=== PATIENT | male | born 1965 | race Caucasian/White ===

== ENCOUNTER 2021-01-07 08:44 | Outpatient (CLI) | payer OTHER | END 2021-01-07 08:45 | disposition home or self-care (01) | LOC: CSHWCC 08:44 | PROVIDERS: ATTEND Nurse Practitioner Family | DX: S81.002D Unspecified open wound, left knee, subsequent encounter (principal); E11.628 Type 2 diabetes mellitus with other skin complications; G89.11 Acute pain due to trauma; I70.202 Unspecified atherosclerosis of native arteries of extremities, left leg; Z72.0 Tobacco use | CPT/HCPCS: 11042; 97605; 99203; G0463 ==

== ENCOUNTER 2021-01-10 10:15 | Outpatient (CLI) | payer OTHER | END 2021-01-10 10:16 | disposition home or self-care (01) | LOC: CSHWCC 10:15 | PROVIDERS: ATTEND Nurse Practitioner Family | DX: S81.002D Unspecified open wound, left knee, subsequent encounter (principal); E11.628 Type 2 diabetes mellitus with other skin complications; G89.11 Acute pain due to trauma; I70.202 Unspecified atherosclerosis of native arteries of extremities, left leg; Z72.0 Tobacco use | CPT/HCPCS: 87070; 87077; 87186; 87205; 99213; G0463 ==

== ENCOUNTER 2021-01-13 15:08 | Outpatient (CLI) | payer OTHER | END 2021-01-13 15:09 | disposition home or self-care (01) | LOC: CSHRAD 15:08 → CSHSDC/OP 15:08 | PROVIDERS: ATTEND Nurse Practitioner Family | DX: S81.002A Unspecified open wound, left knee, initial encounter (principal); M17.12 Unilateral primary osteoarthritis, left knee ==

== ENCOUNTER 2021-01-17 11:19 | Outpatient (CLI) | payer OTHER | END 2021-01-17 11:20 | disposition home or self-care (01) | LOC: CSHWCC 11:19 | PROVIDERS: ATTEND Nurse Practitioner Family | DX: S81.002A Unspecified open wound, left knee, initial encounter (principal); E11.628 Type 2 diabetes mellitus with other skin complications; G89.11 Acute pain due to trauma; I70.202 Unspecified atherosclerosis of native arteries of extremities, left leg; Z72.0 Tobacco use | CPT/HCPCS: 11042; 97605 ==

== ENCOUNTER 2021-01-22 11:39 | Outpatient (CLI) | payer OTHER | END 2021-01-22 11:40 | disposition home or self-care (01) | LOC: CSHWCC 11:39 | PROVIDERS: ATTEND Nurse Practitioner Family | DX: S81.002D Unspecified open wound, left knee, subsequent encounter (principal); E11.628 Type 2 diabetes mellitus with other skin complications; L98.492 Non-pressure chronic ulcer of skin of other sites with fat layer exposed; K94.09 Other complications of colostomy; G89.11 Acute pain due to trauma; I70.202 Unspecified atherosclerosis of native arteries of extremities, left leg; E78.01 Familial hypercholesterolemia; F32.9 Major depressive disorder, single episode, unspecified; I10 Essential (primary) hypertension; L88 Pyoderma gangrenosum; Z72.0 Tobacco use; Z85.46 Personal history of malignant neoplasm of prostate | CPT/HCPCS: 97605 ==

== ENCOUNTER 2021-01-25 09:12 | Outpatient (CLI) | payer OTHER | END 2021-01-25 09:13 | disposition home or self-care (01) | LOC: CSHWCC 09:12 | PROVIDERS: ATTEND Nurse Practitioner Family | DX: S81.002D Unspecified open wound, left knee, subsequent encounter (principal); E11.628 Type 2 diabetes mellitus with other skin complications; G89.11 Acute pain due to trauma; I70.202 Unspecified atherosclerosis of native arteries of extremities, left leg; Z72.0 Tobacco use | CPT/HCPCS: 97605 ==

== ENCOUNTER 2021-01-29 11:28 | Outpatient (CLI) | payer OTHER | END 2021-01-29 11:29 | disposition home or self-care (01) | LOC: CSHWCC 11:28 | PROVIDERS: ATTEND Nurse Practitioner Family | DX: S81.002D Unspecified open wound, left knee, subsequent encounter (principal); E11.628 Type 2 diabetes mellitus with other skin complications; G89.11 Acute pain due to trauma; I70.202 Unspecified atherosclerosis of native arteries of extremities, left leg; Z72.0 Tobacco use | CPT/HCPCS: 99213; G0463 ==

== ENCOUNTER 2021-02-05 14:19 | Outpatient (CLI) | payer OTHER | END 2021-02-05 14:20 | disposition home or self-care (01) | LOC: CSHWCC 14:19 | PROVIDERS: ATTEND Nurse Practitioner Family | DX: S81.002D Unspecified open wound, left knee, subsequent encounter (principal); E11.51 Type 2 diabetes mellitus with diabetic peripheral angiopathy without gangrene; I70.202 Unspecified atherosclerosis of native arteries of extremities, left leg; E11.628 Type 2 diabetes mellitus with other skin complications; G89.11 Acute pain due to trauma; Z72.0 Tobacco use ==

== ENCOUNTER 2021-06-22 13:50 | Emergency (ER) | payer OTHER ==
[2021-06-22 14:29] LABS: #Basophils 0.1 10x3/uL (0.0-0.2); #Eosinphils 0.2 10x3/uL (0.0-0.5); #Monocytes 0.5 10x3/uL (0.0-1.1); #Neutrophils 4.4 10x3/uL (1.5-8.4); %Basophils 0.7 % (0.0-2.0); %Eosinophils 2.1 % (0.0-6.0); %Lymphocytes 32.8 % (18.0-47.0); %Monocytes 6.3 % (0.0-10.0); %Neutrophils 57.4 % (40.0-75.0); Hemoglobin 11.7 g/dL (13.5-17.5); Mean Corpuscular Hemoglobin 26.2 pg (27.0-33.0); Mean Corpuscular Volume 82.1 fl (81.2-95.1); Mean Platelet Volume 10.4 fl (7.4-10.4); Platelet Count 210 10x3/uL (150-450); RBC Distribution Width 15.5 % (11.5-14.5); Red Blood Cell (RBC) Count 4.46 10x6/uL (4.32-5.72); White Blood Cell (WBC) Count 7.6 10x3/uL (3.5-10.5)
[2021-06-22 14:39] LABS: ALT (SGPT) 42 U/L (8-55); AST (SGOT) 25 U/L (5-34); Albumin 3.6 g/dL (3.5-5.0); Alkaline Phosphatase 132 U/L (40-110); Anion Gap 15 mmol/L (10-20); BUN (Urea Nitrogen) 57 mg/dL (8.4-25.7); Bilirubin, Total 0.3 mg/dL (0.2-1.2); Calc. Creatinine Clearance 0 mL/min (70-130); Calcium 9.6 mg/dL (7.8-10.44); Carbon Dioxide 22 mmol/L (22-29); Chloride 104 mmol/L (98-107); Globulin 3.3 g/dL (2.4-3.5); Glucose 263 mg/dL (70-105); Potassium 4.7 mmol/L (3.5-5.1); Protein, Total 6.9 g/dL (6.0-8.3); Sodium 136 mmol/L (136-145)
[2021-06-22 15:02] LABS: CKMB 2.4 ng/mL (0-6.6)
== END 2021-06-22 16:42 | disposition home or self-care (01) ==
LOC: CSHERS 13:50
DX: I47.1 Supraventricular tachycardia (principal); D64.9 Anemia, unspecified; L98.498 Non-pressure chronic ulcer of skin of other sites with other specified severity; R77.8 Other specified abnormalities of plasma proteins; R79.0 Abnormal level of blood mineral; E11.9 Type 2 diabetes mellitus without complications; Z89.612 Acquired absence of left leg above knee; Z79.82 Long term (current) use of aspirin; Z79.4 Long term (current) use of insulin; Z79.899 Other long term (current) drug therapy
CPT/HCPCS: 36415; 71045; 80053; 82553; 83880; 84443; 84484; 85025; 93005

== ENCOUNTER 2021-06-23 13:29 | Observation (INO) | payer OTHER ==
[2021-06-23 14:02] LABS: #Basophils 0.1 10x3/uL (0.0-0.2); #Eosinphils 0.1 10x3/uL (0.0-0.5); #Monocytes 0.6 10x3/uL (0.0-1.1); #Neutrophils 4.9 10x3/uL (1.5-8.4); %Basophils 0.9 % (0.0-2.0); %Eosinophils 1.8 % (0.0-6.0); %Lymphocytes 26.9 % (18.0-47.0); Hemoglobin 12.3 g/dL (13.5-17.5); Mean Corpuscular HGB CONC 32.8 g/dL (32.0-36.0); Mean Corpuscular Hemoglobin 26.6 pg (27.0-33.0); Mean Platelet Volume 10.5 fl (7.4-10.4); Platelet Count 216 10x3/uL (150-450); RBC Distribution Width 15.5 % (11.5-14.5); Red Blood Cell (RBC) Count 4.63 10x6/uL (4.32-5.72)
[2021-06-23 14:20] LABS: ALT (SGPT) 85 U/L (8-55); AST (SGOT) 52 U/L (5-34); Albumin 3.8 g/dL (3.5-5.0); Alkaline Phosphatase 165 U/L (40-110); Anion Gap 17 mmol/L (10-20); BUN (Urea Nitrogen) 46 mg/dL (8.4-25.7); Bilirubin, Total 0.4 mg/dL (0.2-1.2); Calc. Creatinine Clearance 0 mL/min (70-130); Calcium 9.8 mg/dL (7.8-10.44); Carbon Dioxide 21 mmol/L (22-29); Chloride 102 mmol/L (98-107); Globulin 3.5 g/dL (2.4-3.5); Glucose 286 mg/dL (70-105); Potassium 4.6 mmol/L (3.5-5.1); Protein, Total 7.3 g/dL (6.0-8.3); Sodium 135 mmol/L (136-145)
[2021-06-23 14:43] LABS: CKMB 2.6 ng/mL (0-6.6)
[2021-06-23 15:01] LABS: Bilirubin Neg (Negative); Blood, Urine 10 (Negative); Clarity Clear (Clear); Glucose, Urine (Dipstick) 250 mg/dL (Negative); Ketone, Urine 5 mg/dL (Negative); Leukocyte Negative (Negative); Nitrite Negative (Negative); Protein, Urine (Dipstick) 15 mg/dl (Neg-Trace); Urobilinogen Normal mg/dL (Less than 2); pH, Urine 6.5 (5.0-9.0)
[2021-06-23 15:08] LABS: Bacteria/HPF Rare-Few HPF (None Seen); Squamous Epithelial 0-3 HPF (0-3); WBC/HPF 0-3 HPF (0-3)
[2021-06-23] MEDS ORDERED: HYDROcodone/Acetaminophen 10/325 mg Tablet ONE (16:21)
[2021-06-23] MEDS ORDERED: HYDROcodone/Acetaminophen 10/325 mg Tablet PO PRN (16:29)
[2021-06-23] MEDS ORDERED: Dextrose 5% in Water 1,000 ML IV PRN (16:29)
[2021-06-23] MEDS ORDERED: Dextrose 50% Abboject 50 ML SYRINGE SLOW IVP PRN (16:29)
[2021-06-23] MEDS ORDERED: HumaLOG 300 UNITS/3 ML VIAL SC PRN ×2 (16:29)
[2021-06-23 17:09] VITALS: BMI 25.0
[2021-06-23 17:36] LABS: Troponin I 0.232 ng/mL (< 0.028)
[2021-06-23] MEDS ORDERED: Nicotine 14 MG PATCH TD SCH (18:15)
[2021-06-23] MEDS ORDERED: Labetalol HCl 100 MG/20 ML VIAL SLOW IVP SCH (18:30)
[2021-06-23 20:43] LABS: Troponin I 0.291 ng/mL (< 0.028)
[2021-06-23] MEDS: Gabapentin 300 MG CAP PO SCH (21:35)
[2021-06-23] MEDS: Doxycycline 100 MG CAP PO SCH (21:36)
[2021-06-23] MEDS: Rosuvastatin 10 MG TAB PO SCH (21:36)
[2021-06-23] MEDS: TICAGRELOR 90 MG TABLET PO SCH (21:36)
[2021-06-23] MEDS: Lantus 1000 UNITS/10 ML VIAL SC SCH (21:36)
[2021-06-23] MEDS: HYDROcodone/Acetaminophen 10/325 mg Tablet PO PRN (21:39)
[2021-06-23] MEDS: Temazepam 15 MG CAP PO PRN (21:54)
[2021-06-24] MEDS: HYDROcodone/Acetaminophen 10/325 mg Tablet PO PRN ×4 (04:54→21:10)
[2021-06-24 05:03] LABS: Anion Gap 13 mmol/L (10-20); BUN (Urea Nitrogen) 33 mg/dL (8.4-25.7); Calc. Creatinine Clearance 104 mL/min (70-130); Calcium 9.8 mg/dL (7.8-10.44); Carbon Dioxide 25 mmol/L (22-29); Chloride 104 mmol/L (98-107); Glucose 145 mg/dL (70-105); Potassium 3.6 mmol/L (3.5-5.1); Sodium 138 mmol/L (136-145)
[2021-06-24 05:11] LABS: #Basophils 0.1 10x3/uL (0.0-0.2); #Eosinphils 0.3 10x3/uL (0.0-0.5); #Monocytes 0.6 10x3/uL (0.0-1.1); #Neutrophils 3.8 10x3/uL (1.5-8.4); %Basophils 0.8 % (0.0-2.0); %Eosinophils 3.6 % (0.0-6.0); %Lymphocytes 33.9 % (18.0-47.0); %Monocytes 7.6 % (0.0-10.0); %Neutrophils 53.3 % (40.0-75.0); Hemoglobin 13.1 g/dL (13.5-17.5); Mean Corpuscular Hemoglobin 26.1 pg (27.0-33.0); Mean Corpuscular Volume 79.2 fl (81.2-95.1); Mean Platelet Volume 10.6 fl (7.4-10.4); Platelet Count 239 10x3/uL (150-450); RBC Distribution Width 15.5 % (11.5-14.5); Red Blood Cell (RBC) Count 5.01 10x6/uL (4.32-5.72); White Blood Cell (WBC) Count 7.2 10x3/uL (3.5-10.5)
[2021-06-24] MEDS ORDERED: Enoxaparin Sodium 40 MG/0.4 ML SYRINGE SC SCH (09:00)
[2021-06-24] MEDS ORDERED: Lantus 1000 UNITS/10 ML VIAL SC SCH (09:00)
[2021-06-24] MEDS: TICAGRELOR 90 MG TABLET PO SCH ×2 (09:27→21:09)
[2021-06-24] MEDS: Aspirin 81 mg Enteric Coated Tablet PO SCH (09:27)
[2021-06-24] MEDS: Gabapentin 300 MG CAP PO SCH ×3 (09:27→21:09)
[2021-06-24] MEDS: Doxycycline 100 MG CAP PO SCH ×2 (09:37→21:08)
[2021-06-24] MEDS ORDERED: Nicotine 14 MG PATCH TD SCH (10:00)
[2021-06-24 15:30] LABS: SARS-CoV-2 PCR by NAA Not Detected (NotDetected)
[2021-06-24] MEDS: Temazepam 15 MG CAP PO PRN (21:10)
[2021-06-24] MEDS: Rosuvastatin 10 MG TAB PO SCH (21:10)
[2021-06-24] MEDS: Lantus 1000 UNITS/10 ML VIAL SC SCH (21:23)
[2021-06-25 04:20] VITALS: BP 106/64; TEMP 97.7
[2021-06-25 04:24] LABS: #Basophils 0.1 10x3/uL (0.0-0.2); #Eosinphils 0.2 10x3/uL (0.0-0.5); #Monocytes 0.5 10x3/uL (0.0-1.1); #Neutrophils 3.8 10x3/uL (1.5-8.4); %Basophils 0.7 % (0.0-2.0); %Eosinophils 2.8 % (0.0-6.0); %Lymphocytes 34.7 % (18.0-47.0); %Monocytes 7.1 % (0.0-10.0); Hemoglobin 13.8 g/dL (13.5-17.5); Mean Corpuscular HGB CONC 33.2 g/dL (32.0-36.0); Mean Corpuscular Hemoglobin 26.4 pg (27.0-33.0); Mean Corpuscular Volume 79.5 fl (81.2-95.1); Mean Platelet Volume 10.5 fl (7.4-10.4); Platelet Count 245 10x3/uL (150-450); RBC Distribution Width 15.3 % (11.5-14.5); Red Blood Cell (RBC) Count 5.23 10x6/uL (4.32-5.72); White Blood Cell (WBC) Count 7.1 10x3/uL (3.5-10.5)
[2021-06-25 05:01] LABS: Anion Gap 16 mmol/L (10-20); BUN (Urea Nitrogen) 28 mg/dL (8.4-25.7); Calc. Creatinine Clearance 93 mL/min (70-130); Carbon Dioxide 24 mmol/L (22-29); Chloride 100 mmol/L (98-107); Glucose 243 mg/dL (70-105); Potassium 4.2 mmol/L (3.5-5.1); Sodium 136 mmol/L (136-145)
[2021-06-25] MEDS: TICAGRELOR 90 MG TABLET PO SCH (08:18)
[2021-06-25] MEDS: Doxycycline 100 MG CAP PO SCH (08:18)
[2021-06-25] MEDS: Aspirin 81 mg Enteric Coated Tablet PO SCH (08:18)
[2021-06-25] MEDS: Gabapentin 300 MG CAP PO SCH (08:19)
== END 2021-06-25 09:20 | disposition home or self-care (01) ==
LOC: CSHERS 13:29 → CSHTELE 16:55
PROVIDERS: ADMIT Internal Medicine; ATTEND Internal Medicine
DX: I47.1 Supraventricular tachycardia (principal); L98.499 Non-pressure chronic ulcer of skin of other sites with unspecified severity; E11.40 Type 2 diabetes mellitus with diabetic neuropathy, unspecified; E78.5 Hyperlipidemia, unspecified; I10 Essential (primary) hypertension; I25.10 Atherosclerotic heart disease of native coronary artery without angina pectoris; F17.210 Nicotine dependence, cigarettes, uncomplicated; Z89.612 Acquired absence of left leg above knee; I73.9 Peripheral vascular disease, unspecified; Z20.822 Contact with and (suspected) exposure to COVID-19; Z79.02 Long term (current) use of antithrombotics/antiplatelets; Z79.899 Other long term (current) drug therapy; Z79.82 Long term (current) use of aspirin; Z79.4 Long term (current) use of insulin; Z88.0 Allergy status to penicillin
CPT/HCPCS: 36415; 36416; 71045; 80048; 80053; 81003; 81015; 82553; 83880; 84443; 84484; 85025; 93005; 93010; 96372; G0378; J1650; J1815; U0003; U0005

== ENCOUNTER 2022-06-29 15:50 | Emergency (ER) | payer BC ==
[2022-06-29 16:32] LABS: #Basophils 0.1 10x3/uL (0.0-0.2); #Eosinphils 0.3 10x3/uL (0.0-0.5); #Monocytes 0.8 10x3/uL (0.0-1.1); #Neutrophils 7.3 10x3/uL (1.5-8.4); %Basophils 0.6 % (0.0-2.0); %Eosinophils 2.3 % (0.0-6.0); %Lymphocytes 21.4 % (18.0-47.0); %Neutrophils 68.2 % (40.0-75.0); Hemoglobin 11.5 g/dL (13.5-17.5); Mean Corpuscular Hemoglobin 27.5 pg (27.0-33.0); Mean Corpuscular Volume 83.5 fl (81.2-95.1); Mean Platelet Volume 10.9 fl (7.4-10.4); Platelet Count 222 10x3/uL (150-450); RBC Distribution Width 14.4 % (11.5-14.5); Red Blood Cell (RBC) Count 4.18 10x6/uL (4.32-5.72); White Blood Cell (WBC) Count 10.8 10x3/uL (3.5-10.5)
[2022-06-29 16:46] LABS: ALT (SGPT) 16 U/L (8-55); AST (SGOT) 15 U/L (5-34); Albumin 3.6 g/dL (3.5-5.0); Alkaline Phosphatase 78 U/L (40-110); Anion Gap 13 mmol/L (10-20); BUN (Urea Nitrogen) 18 mg/dL (8.4-25.7); Bilirubin, Total 0.3 mg/dL (0.2-1.2); CRP (Inflammatory) 7.98 mg/dL (= or < 0.5); Calc. Creatinine Clearance 0 mL/min (70-130); Calcium 9.5 mg/dL (7.8-10.44); Carbon Dioxide 30 mmol/L (22-29); Chloride 100 mmol/L (98-107); Estimated GFR 84; Globulin 3.8 g/dL (2.4-3.5); Glucose 306 mg/dL (70-105); Potassium 4.6 mmol/L (3.5-5.1); Protein, Total 7.4 g/dL (6.0-8.3); Sodium 138 mmol/L (136-145)
[2022-06-29] MEDS ORDERED: Cefepime 2 GM VIAL ONE (17:42)
== END 2022-06-29 18:11 | disposition home or self-care (01) ==
LOC: CSHERS 15:50
DX: S90.851A Superficial foreign body, right foot, initial encounter (principal); L03.115 Cellulitis of right lower limb; I25.10 Atherosclerotic heart disease of native coronary artery without angina pectoris; E78.5 Hyperlipidemia, unspecified; I10 Essential (primary) hypertension; W45.8XXA Other foreign body or object entering through skin, initial encounter
CPT/HCPCS: 80053; 85025; 85652; 86140; 94760; J0692

== ENCOUNTER 2022-06-30 11:19 | Inpatient (IN) | payer BC ==
[2022-06-30] MEDS ORDERED: Vancomycin 1.5 GRAM/300 ML BAG 1.5 GM in Premix Bag 1 BAG IVPB SCH (12:00)
[2022-06-30] MEDS ORDERED: Cefepime 2 GM VIAL ONE (12:15)
[2022-06-30 12:16] LABS: #Basophils 0.1 10x3/uL (0.0-0.2); #Eosinphils 0.2 10x3/uL (0.0-0.5); #Monocytes 0.8 10x3/uL (0.0-1.1); #Neutrophils 9.8 10x3/uL (1.5-8.4); %Basophils 0.6 % (0.0-2.0); %Eosinophils 1.7 % (0.0-6.0); %Lymphocytes 21.3 % (18.0-47.0); %Monocytes 5.8 % (0.0-10.0); %Neutrophils 69.9 % (40.0-75.0); Hemoglobin 12.7 g/dL (13.5-17.5); Mean Corpuscular HGB CONC 31.8 g/dL (32.0-36.0); Mean Corpuscular Volume 84.7 fl (81.2-95.1); Mean Platelet Volume 11.2 fl (7.4-10.4); Platelet Count 245 10x3/uL (150-450); RBC Distribution Width 14.5 % (11.5-14.5); Red Blood Cell (RBC) Count 4.71 10x6/uL (4.32-5.72); White Blood Cell (WBC) Count 14.1 10x3/uL (3.5-10.5)
[2022-06-30 12:34] LABS: ALT (SGPT) 16 U/L (8-55); AST (SGOT) 16 U/L (5-34); Albumin 3.9 g/dL (3.5-5.0); Alkaline Phosphatase 90 U/L (40-110); Anion Gap 15 mmol/L (10-20); BUN (Urea Nitrogen) 19 mg/dL (8.4-25.7); Bilirubin, Total 0.4 mg/dL (0.2-1.2); Calc. Creatinine Clearance 0 mL/min (70-130); Carbon Dioxide 28 mmol/L (22-29); Chloride 103 mmol/L (98-107); Estimated GFR 63; Globulin 4.3 g/dL (2.4-3.5); Glucose 149 mg/dL (70-105); Protein, Total 8.2 g/dL (6.0-8.3); Sodium 141 mmol/L (136-145)
[2022-06-30] MEDS ORDERED: Ondansetron ODT 4 MG TAB PO PRN (12:40)
[2022-06-30] MEDS ORDERED: Ondansetron PF 4 MG/2 ML Vial IVP PRN (12:40)
[2022-06-30] MEDS ORDERED: Acetaminophen 325 MG TAB PO PRN (12:40)
[2022-06-30] MEDS ORDERED: Dextrose 50% Abboject 50 ML SYRINGE SLOW IVP PRN (12:46)
[2022-06-30] MEDS ORDERED: Insulin Regular 300 UNITS/3 ML VIAL SC PRN (12:46)
[2022-06-30] MEDS ORDERED: Dextrose 5% in Water 1,000 ML IV PRN (12:46)
[2022-06-30] MEDS ORDERED: Iopamidol 300 61% 100 ML VIAL FS ONE (14:47)
[2022-06-30 17:08] LABS: Glucose 105 mg/dL (70-105)
[2022-06-30 18:22] VITALS: BMI 22.2
[2022-06-30] MEDS ORDERED: buPROPion HCl 100 MG TAB PO SCH (20:15)
[2022-06-30] MEDS ORDERED: Gabapentin 300 MG CAP PO SCH (20:15)
[2022-06-30] MEDS ORDERED: TICAGRELOR 90 MG TABLET PO SCH (20:30)
[2022-06-30] MEDS ORDERED: Lantus 1000 UNITS/10 ML VIAL SC SCH (20:30)
[2022-06-30] MEDS ORDERED: Rosuvastatin 10 MG TAB PO SCH (20:30)
[2022-06-30] MEDS ORDERED: Temazepam 15 MG CAP PO SCH (20:30)
[2022-06-30] MEDS ORDERED: VANCOMYCIN 1.25 GM/250 ML BAG IVPB PRN (21:00)
[2022-06-30 21:05] LABS: Glucose 154 mg/dL (70-105)
[2022-06-30] MEDS: Cefepime 1 GM in Sodium Chloride 0.9% 100 ML IVPB SCH (21:12)
[2022-07-01 04:12] LABS: #Basophils 0.1 10x3/uL (0.0-0.2); #Eosinphils 0.2 10x3/uL (0.0-0.5); #Monocytes 0.8 10x3/uL (0.0-1.1); #Neutrophils 8.2 10x3/uL (1.5-8.4); %Basophils 0.9 % (0.0-2.0); %Eosinophils 1.7 % (0.0-6.0); %Lymphocytes 24.5 % (18.0-47.0); %Monocytes 6.7 % (0.0-10.0); %Neutrophils 65.3 % (40.0-75.0); Hemoglobin 12.7 g/dL (13.5-17.5); Mean Corpuscular HGB CONC 32.6 g/dL (32.0-36.0); Mean Corpuscular Volume 82.8 fl (81.2-95.1); Mean Platelet Volume 10.7 fl (7.4-10.4); Platelet Count 232 10x3/uL (150-450); RBC Distribution Width 14.2 % (11.5-14.5); Red Blood Cell (RBC) Count 4.71 10x6/uL (4.32-5.72); White Blood Cell (WBC) Count 12.6 10x3/uL (3.5-10.5)
[2022-07-01 04:27] LABS: Anion Gap 15 mmol/L (10-20); BUN (Urea Nitrogen) 18 mg/dL (8.4-25.7); Calc. Creatinine Clearance 71 mL/min (70-130); Carbon Dioxide 25 mmol/L (22-29); Chloride 104 mmol/L (98-107); Estimated GFR 80; Potassium 3.7 mmol/L (3.5-5.1); Sodium 140 mmol/L (136-145)
[2022-07-01 04:33] LABS: Glucose 52 mg/dL (70-105)
[2022-07-01 07:56] LABS: Glucose 157 mg/dL (70-105)
[2022-07-01] MEDS: Cefepime 1 GM in Sodium Chloride 0.9% 100 ML IVPB SCH ×2 (09:05→21:41)
[2022-07-01] MEDS: Enoxaparin Sodium 40 MG/0.4 ML SYRINGE SC SCH (09:05)
[2022-07-01] MEDS ORDERED: Temazepam 15 MG CAP PO PRN (11:02)
[2022-07-01 11:39] LABS: Glucose 96 mg/dL (70-105)
[2022-07-01 12:13] LABS: Vancomycin, Random 9.9 ug/mL (See Comment)
[2022-07-01] MEDS: Vancomycin HCl 750 MG in Sodium Chloride 0.9% 250 ML 250 ML IVPB SCH (13:42)
[2022-07-01] MEDS: Gabapentin 300 MG CAP PO SCH ×2 (15:07→21:40)
[2022-07-01 17:52] LABS: Glucose 104 mg/dL (70-105)
[2022-07-01] MEDS ORDERED: Rosuvastatin 10 MG TAB PO SCH (21:00)
[2022-07-01] MEDS ORDERED: buPROPion HCl 100 MG TAB PO SCH (21:00)
[2022-07-02 00:11] LABS: Glucose 65 mg/dL (70-105)
[2022-07-02] MEDS: Vancomycin HCl 750 MG in Sodium Chloride 0.9% 250 ML 250 ML IVPB SCH ×2 (00:59→14:44)
[2022-07-02 05:22] LABS: #Basophils 0.1 10x3/uL (0.0-0.2); #Eosinphils 0.2 10x3/uL (0.0-0.5); #Monocytes 0.7 10x3/uL (0.0-1.1); #Neutrophils 8.7 10x3/uL (1.5-8.4); %Basophils 0.7 % (0.0-2.0); %Eosinophils 1.3 % (0.0-6.0); %Lymphocytes 26.4 % (18.0-47.0); %Monocytes 5.3 % (0.0-10.0); %Neutrophils 65.4 % (40.0-75.0); Mean Corpuscular HGB CONC 32.7 g/dL (32.0-36.0); Mean Corpuscular Volume 82.5 fl (81.2-95.1); Mean Platelet Volume 10.8 fl (7.4-10.4); Platelet Count 253 10x3/uL (150-450); RBC Distribution Width 14.3 % (11.5-14.5); Red Blood Cell (RBC) Count 4.81 10x6/uL (4.32-5.72); White Blood Cell (WBC) Count 13.3 10x3/uL (3.5-10.5)
[2022-07-02 05:57] LABS: Anion Gap 15 mmol/L (10-20); BUN (Urea Nitrogen) 21 mg/dL (8.4-25.7); Calc. Creatinine Clearance 74 mL/min (70-130); Calcium 9.8 mg/dL (7.8-10.44); Carbon Dioxide 25 mmol/L (22-29); Chloride 102 mmol/L (98-107); Estimated GFR 85; Glucose 71 mg/dL (70-105); Potassium 3.9 mmol/L (3.5-5.1); Sodium 138 mmol/L (136-145)
[2022-07-02] MEDS ORDERED: Aspirin 81 mg Enteric Coated Tablet PO SCH (09:00)
[2022-07-02] MEDS: Gabapentin 300 MG CAP PO SCH ×2 (09:31→14:44)
[2022-07-02] MEDS: Enoxaparin Sodium 40 MG/0.4 ML SYRINGE SC SCH (09:31)
[2022-07-02] MEDS: Cefepime 1 GM in Sodium Chloride 0.9% 100 ML IVPB SCH (09:32)
[2022-07-02 10:17] LABS: Glucose 79 mg/dL (70-105)
[2022-07-02 11:52] LABS: Glucose 90 mg/dL (70-105)
[2022-07-02] MEDS ORDERED: Nicotine 14 MG PATCH TD SCH (12:00)
[2022-07-02 12:36] VITALS: TEMP 97.5
[2022-07-02 14:46] LABS: Hemoglobin A1c 7.5 % (4.0-6.0)
[2022-07-02 17:17] VITALS: BP 142/77
== END 2022-07-02 17:35 | disposition home or self-care (01) | DRG 854 ==
LOC: CSHERS 11:19 → CSHERHOLD 15:39 → CSHTELE 17:08
PROVIDERS: ADMIT Hospitalist; ATTEND Internal Medicine
PROC: 3E03329 Introduction of Other Anti-infective into Peripheral Vein, Percutaneous Approach (ICD-10-PCS; 2022-06-30)
PROC: 0JBQ0ZZ Excision of Right Foot Subcutaneous Tissue and Fascia, Open Approach (ICD-10-PCS; principal; 2022-07-02)
PROC: 0JCN3ZZ Extirpation of Matter from Right Lower Leg Subcutaneous Tissue and Fascia, Percutaneous Approach (ICD-10-PCS; 2022-07-02)
DX: A41.9 Sepsis, unspecified organism (principal); L03.115 Cellulitis of right lower limb; N17.9 Acute kidney failure, unspecified; L97.419 Non-pressure chronic ulcer of right heel and midfoot with unspecified severity; I25.10 Atherosclerotic heart disease of native coronary artery without angina pectoris; E78.5 Hyperlipidemia, unspecified; I10 Essential (primary) hypertension; E11.51 Type 2 diabetes mellitus with diabetic peripheral angiopathy without gangrene; E11.628 Type 2 diabetes mellitus with other skin complications; E11.649 Type 2 diabetes mellitus with hypoglycemia without coma; E11.621 Type 2 diabetes mellitus with foot ulcer; Z98.890 Other specified postprocedural states; Z89.612 Acquired absence of left leg above knee; Z88.0 Allergy status to penicillin; Z79.82 Long term (current) use of aspirin; Z79.899 Other long term (current) drug therapy; Z79.4 Long term (current) use of insulin
CPT/HCPCS: 36415; 36416; 80053; 80202; 82947; 83036; 83605; 85025; 85652; 86140; 87040; 87070; 87077; 87186; 87205; 93923; 94760; 96374; 96375; 97139; J0692; J1650; J1815; J3370; J3490; J7050; J7999; Q9967; U0003; U0005

== ENCOUNTER 2022-07-10 08:03 | Outpatient (CLI) | payer BC | END 2022-07-10 08:04 | disposition home or self-care (01) | LOC: CSHWCC 08:03 | PROVIDERS: ATTEND Preventive Medicine Undersea and Hyperbaric Medicine | DX: E11.621 Type 2 diabetes mellitus with foot ulcer (principal); L97.412 Non-pressure chronic ulcer of right heel and midfoot with fat layer exposed | CPT/HCPCS: 11042; 99212; G0463 ==